=== PATIENT | male | born 1955 | race Two or more races ===

== ENCOUNTER 2020-08-01 13:05 | Emergency (ER) | payer MEDICAID, MEDICARE ==
[~2020-08-01] VITALS: Ht 165.1 cm; Wt 78.9 kg
[~2020-08-01 13:05] MED LIST: AMLO10TA13 PO; ASPI-394 PO; ATOR20TA50 PO; ENAL2.5T11 PO
[2020-08-01] MEDS ORDERED: cloNIDine HCL 0.1 MG TAB PO ONE (13:45)
[2020-08-01 14:53] VITALS: BP 158/87
[2020-08-01 15:10] LABS: Albumin 3.9 g/dL (3.4-5.0); Calcium 9.1 mg/dL (8.5-10.1); Potassium 3.5 mmol/L (3.5-5.1)
[2020-08-01 15:16] LABS: BUN/Creatinine Ratio 12.6; Bilirubin, Total 0.5 mg/dL (0.2-1.0); Total Protein 7.9 g/dL (6.4-8.2)
[2020-08-01 15:59] LABS: Basophils # (auto) 0 10 ^3/uL (0-0.2); Basophils % (auto) 0.6 % (0.0-2.0); Eosinophils # (auto) 0.2 10 ^3/uL (0-0.8); Eosinophils % (auto) 2.5 % (0.0-7.0); Hematocrit 48.6 % (41.0-53.0); Hemoglobin 16.2 g/dL (13.5-17.5); Lymphocytes # (auto) 1.3 10 ^3/uL (0.4-5.4); Mean Corpuscular Hgb Conc. 33.3 g/dL (32.0-36.0); Mean Corpuscular Volume 90.1 fL (80.0-100.0); Monocytes # (auto) 0.6 10 ^3/uL (0-1.3); Monocytes % (auto) 8.7 % (0.0-12.0); Neutrophils # (auto) 4.5 10 ^3/uL (1.6-8.6); Neutrophils % (auto) 68.2 % (37.0-80.0); Nucleated Red Blood Cells % 0.1 %; Platelet Count (auto) 262 10^3/uL (140-450); Red Cell Distribution Width 13.5 % (11.8-14.3); White Blood Cell 6.5 10^3/uL (4.4-10.8)
== END 2020-08-01 16:15 | disposition home or self-care (01) ==
LOC: ER 13:05
DX: I16.0 Hypertensive urgency (principal); I10 Essential (primary) hypertension; E11.9 Type 2 diabetes mellitus without complications; E78.5 Hyperlipidemia, unspecified; R51.9 Headache, unspecified; Z87.891 Personal history of nicotine dependence
CPT/HCPCS: 36415; 70450; 80053; 84443; 85025

== ENCOUNTER 2023-02-01 17:56 | Inpatient (IN) | payer MEDICARE, OTHER ==
[~2023-02-01] VITALS: Ht 165.1 cm; Wt 75.7 kg
[~2023-02-01 17:56] MED LIST changes: +AMLO-496 PO; -AMLO10TA13 PO
[2023-02-01 20:15] LABS: Basophils # (auto) 0 10 ^3/uL (0-0.2); Basophils % (auto) 0.4 % (0.0-2.0); Eosinophils # (auto) 0.1 10 ^3/uL (0-0.8); Eosinophils % (auto) 1.6 % (0.0-7.0); Hemoglobin 15.9 g/dL (13.5-17.5); Lymphocytes % (auto) 23.2 % (10.0-50.0); Mean Corpuscular Hemoglobin 29.5 pg (28.0-32.0); Mean Corpuscular Hgb Conc. 33.8 g/dL (32.0-36.0); Mean Corpuscular Volume 87.1 fL (80.0-100.0); Monocytes # (auto) 0.7 10 ^3/uL (0-1.3); Monocytes % (auto) 7.7 % (0.0-12.0); Neutrophils # (auto) 5.7 10 ^3/uL (1.6-8.6); Neutrophils % (auto) 67.1 % (37.0-80.0); Nucleated Red Blood Cells % 0.1 %; Red Cell Distribution Width 13.2 % (11.8-14.3); White Blood Cell 8.5 10^3/uL (4.4-10.8)
[2023-02-01 20:40] LABS: Albumin 4.1 g/dL (3.4-5.0); BUN/Creatinine Ratio 24.2 (10.0-20.0); Calcium 9.7 mg/dL (8.5-10.1); Potassium 4.4 mmol/L (3.5-5.1)
[2023-02-01 20:42] LABS: Bilirubin, Total 0.5 mg/dL (0.2-1.0); Total Protein 7.8 g/dL (6.4-8.2)
[2023-02-01 21:50] LABS: Urine Bacteria NONE SEEN /hpf (None Seen); Urine Blood Negative /uL (Negative); Urine Mucus FEW (None Seen); Urine Specific Gravity 1.033 (1.001-1.035); Urine WBC 3 /hpf (0 - 3)
[2023-02-02] MEDS ORDERED: TEMAZEPAM 15 MG CAP PO PRN (05:00)
[2023-02-02] MEDS ORDERED: FLEET ENEMA(ADULT) 135 ML PR ONE (05:00)
[2023-02-02] MEDS: HCTZ 25 MG TAB PO SCH (11:16)
[2023-02-02] MEDS: amLODIPine BESYLATE 5 MG TAB PO SCH (11:17)
[2023-02-02] MEDS: LISINOPRIL 20 MG TAB PO SCH (11:17)
[2023-02-02] MEDS: DOCUSATE SOD 100 MG CAP PO SCH ×2 (11:18→22:13)
[2023-02-02] MEDS: ENOXAPARIN SOD 40 MG/0.4 ML SYRINGE SC SCH (11:18)
[2023-02-02] MEDS: CARBIDOPA W LEVODOPA 25/100mg TABLET PO SCH ×2 (14:40→22:12)
[2023-02-02 17:00] VITALS: BP 128/67
[2023-02-02] MEDS ORDERED: traMADol HCL 50 MG TAB PO PRN (17:45)
[2023-02-02 22:00] VITALS: BP 123/67
[2023-02-02] MEDS: ATORVASTATIN 20 MG TAB PO SCH (22:12)
[2023-02-03] MEDS ORDERED: CARB1CAP3 PO (01:58)
[2023-02-03] MEDS ORDERED: HYDR12.56 PO (01:58)
[2023-02-03 05:00] VITALS: BP 112/63
[2023-02-03 06:54] LABS: Basophils # (auto) 0.1 10 ^3/uL (0-0.2); Basophils % (auto) 0.6 % (0.0-2.0); Eosinophils # (auto) 0.3 10 ^3/uL (0-0.8); Eosinophils % (auto) 3.1 % (0.0-7.0); Hematocrit 43.6 % (41.0-53.0); Hemoglobin 15.1 g/dL (13.5-17.5); Lymphocytes # (auto) 2.8 10 ^3/uL (0.4-5.4); Lymphocytes % (auto) 32.4 % (10.0-50.0); Mean Corpuscular Hemoglobin 30.4 pg (28.0-32.0); Mean Corpuscular Hgb Conc. 34.7 g/dL (32.0-36.0); Mean Corpuscular Volume 87.5 fL (80.0-100.0); Monocytes # (auto) 0.5 10 ^3/uL (0-1.3); Monocytes % (auto) 6.3 % (0.0-12.0); Neutrophils # (auto) 4.9 10 ^3/uL (1.6-8.6); Neutrophils % (auto) 57.6 % (37.0-80.0); Nucleated Red Blood Cells % 0.7 %; Red Blood Cells 4.99 10^6/uL (4.5-5.90); Red Cell Distribution Width 13.1 % (11.8-14.3); White Blood Cell 8.6 10^3/uL (4.4-10.8)
[2023-02-03] MEDS: CARBIDOPA W LEVODOPA 25/100mg TABLET PO SCH ×3 (07:12→22:40)
[2023-02-03] MEDS: ENOXAPARIN SOD 40 MG/0.4 ML SYRINGE SC SCH (08:59)
[2023-02-03 09:00] VITALS: BP 140/67
[2023-02-03] MEDS: LISINOPRIL 20 MG TAB PO SCH (09:00)
[2023-02-03] MEDS: HCTZ 25 MG TAB PO SCH (09:00)
[2023-02-03] MEDS: DOCUSATE SOD 100 MG CAP PO SCH ×2 (09:01→22:39)
[2023-02-03] MEDS: amLODIPine BESYLATE 5 MG TAB PO SCH (09:02)
[2023-02-03 09:11] LABS: Folate (Folic Acid) 12.33 ng/mL (5.38-24)
[2023-02-03 10:15] LABS: Calcium 8.8 mg/dL (8.5-10.1); Potassium 3.7 mmol/L (3.5-5.1)
[2023-02-03 12:47] VITALS: BP 132/70
[2023-02-03] MEDS ORDERED: POLYETHYLENE GLYCOL 17 GM PWDR PO ONE (13:45)
[2023-02-03 15:12] LABS: Cholesterol 122 mg/dL (< 200); HDL Cholesterol 34 mg/dL (40-59); LDL Cholesterol 77 mg/dL (< 100); Triglycerides 90 mg/dL (< 150)
[2023-02-03 16:57] VITALS: BP 120/65
[2023-02-03] MEDS: TAMSULOSIN HYDROCHLORIDE 0.4 MG CAP PO SCH (18:00)
[2023-02-03 22:00] VITALS: BP 147/77
[2023-02-03] MEDS: ATORVASTATIN 20 MG TAB PO SCH (22:39)
[2023-02-04 05:00] VITALS: BP 142/64
[2023-02-04] MEDS: CARBIDOPA W LEVODOPA 25/100mg TABLET PO SCH ×2 (06:27→15:04)
[2023-02-04 09:00] VITALS: BP 147/74
[2023-02-04] MEDS: ENOXAPARIN SOD 40 MG/0.4 ML SYRINGE SC SCH (09:35)
[2023-02-04] MEDS: DOCUSATE SOD 100 MG CAP PO SCH (09:35)
[2023-02-04] MEDS: HCTZ 25 MG TAB PO SCH (09:36)
[2023-02-04] MEDS: LISINOPRIL 20 MG TAB PO SCH (09:37)
[2023-02-04] MEDS: amLODIPine BESYLATE 5 MG TAB PO SCH (09:37)
[2023-02-04] MEDS ORDERED: POLYETHYLENE GLYCOL 17 GM PWDR PO SCH (10:00)
[2023-02-04 13:00] VITALS: BP 149/70
[2023-02-04 17:00] VITALS: BP 137/69
[2023-02-04 17:13] VITALS: BP 149/74
[2023-02-04] MEDS: TAMSULOSIN HYDROCHLORIDE 0.4 MG CAP PO SCH (18:00)
== END 2023-02-04 18:05 | DRG 726 ==
LOC: ER 17:56 → OVERFLOW 02-02 04:59 → CENTRAL 02-02 15:32
PROVIDERS: ADMIT Nurse Practitioner; ATTEND Internal Medicine
DX: N40.1 Benign prostatic hyperplasia with lower urinary tract symptoms (principal); R62.7 Adult failure to thrive; Z68.26 Body mass index [BMI] 26.0-26.9, adult; G20 Parkinson's disease; I10 Essential (primary) hypertension; R29.6 Repeated falls; R55 Syncope and collapse; E78.5 Hyperlipidemia, unspecified; E11.9 Type 2 diabetes mellitus without complications; Z20.822 Contact with and (suspected) exposure to COVID-19; R26.9 Unspecified abnormalities of gait and mobility; R35.1 Nocturia; R33.8 Other retention of urine; Z82.62 Family history of osteoporosis; Z87.891 Personal history of nicotine dependence; K59.00 Constipation, unspecified
CPT/HCPCS: 36415; 70450; 71045; 74176; 80048; 80053; 80061; 81001; 82306; 82607; 82746; 83036; 83690; 84154; 84443; 84484; 85025; 87426; 96372; 97110; 97116; 97163; 97530; G0378

== ENCOUNTER 2023-07-18 09:11 | Emergency (ER) | payer MEDICARE, OTHER ==
[~2023-07-18] VITALS: Ht 162.6 cm; Wt 75.2 kg
[~2023-07-18 09:11] MED LIST changes: -AMLO-496 PO; +AMLO1TAB23 PO; +CARB1CAP3 PO; +HYDR12.59 PO
[2023-07-18 10:27] VITALS: BP 150/61; PULSE 86; RESP 16; TEMP 97.9; O2SAT 98
[2023-07-18] MEDS ORDERED: NEOMYCIN-BACITRACIN-POLYM UNITDOSE PKG TOP OINT TOP ONE (11:30)
[2023-07-18] MEDS ORDERED: CEPH500C PO (12:19)
== END 2023-07-18 12:29 | disposition home or self-care (01) ==
LOC: ER 09:11
DX: S01.111A Laceration without foreign body of right eyelid and periocular area, initial encounter (principal); R51.9 Headache, unspecified; M54.2 Cervicalgia; I10 Essential (primary) hypertension; E11.9 Type 2 diabetes mellitus without complications; E78.5 Hyperlipidemia, unspecified; Z87.891 Personal history of nicotine dependence; W06.XXXA Fall from bed, initial encounter; Y93.89 Activity, other specified; Y92.89 Other specified places as the place of occurrence of the external cause; Y99.8 Other external cause status
CPT/HCPCS: 12011; 70450; 72125

== ENCOUNTER 2024-05-14 11:57 | Inpatient (IN) | payer MEDICARE, OTHER ==
[~2024-05-14] VITALS: Ht 167.6 cm; Wt 74.5 kg
[~2024-05-14 11:57] MED LIST changes: +CEPH500C PO; +ENAL1TAB43 PO; -ENAL2.5T11 PO
[2024-05-14 13:30] LABS: Urine Bacteria None Seen /hpf (None Seen)
[2024-05-14 13:59] LABS: Urine Blood Negative /uL (Negative); Urine Clarity Clear (Clear); Urine Color Yellow (Yellow); Urine Hyaline Cast FEW /lpf (0 - 2); Urine Mucus FEW (None Seen); Urine Protein, UAD Negative (Negative); Urine Specific Gravity 1.022 (1.001-1.035); Urine Urobilinogen Normal (Negative); Urine WBC 1 /hpf (0 - 3)
[2024-05-14 14:19] LABS: Basophils # (auto) 0 10 ^3/uL (0-0.2); Basophils % (auto) 0.5 % (0.0-2.0); Eosinophils # (auto) 0.1 10 ^3/uL (0-0.8); Eosinophils % (auto) 1.4 % (0.0-7.0); Hematocrit 39.4 % (41.0-53.0); Hemoglobin 13.4 g/dL (13.5-17.5); Lymphocytes % (auto) 30.6 % (10.0-50.0); Mean Corpuscular Hemoglobin 29.6 pg (28.0-32.0); Mean Corpuscular Hgb Conc. 34.1 g/dL (32.0-36.0); Mean Corpuscular Volume 86.7 fL (80.0-100.0); Monocytes # (auto) 0.4 10 ^3/uL (0-1.3); Monocytes % (auto) 6.9 % (0.0-12.0); Neutrophils # (auto) 3.9 10 ^3/uL (1.6-8.6); Neutrophils % (auto) 60.6 % (37.0-80.0); Red Blood Cells 4.54 10^6/uL (4.5-5.90); Red Cell Distribution Width 13.6 % (11.8-14.3); White Blood Cell 6.5 10^3/uL (4.4-10.8)
[2024-05-14 14:39] LABS: Alanine Aminotransferase 13 U/L (7-40); Albumin 4.3 g/dL (3.2-4.8); Alkaline Phosphatase 81 U/L (46-116); Anion Gap 7 (5-15); Aspartate Aminotransferase 9 U/L (13-40); BUN/Creatinine Ratio 13.2 (10.0-20.0); Bilirubin, Total 0.4 mg/dL (0.2-1.0); Blood Urea Nitrogen 10 mg/dL (9-23); Calcium 9.6 mg/dL (8.7-10.4); Carbon Dioxide 26 mmol/L (20-30); Chloride 107 mmol/L (98-107); Glucose 101 mg/dL (74-106); Potassium 3.9 mmol/L (3.5-5.1); Sodium 140 mmol/L (136-145); Total Protein 6.5 g/dL (5.7-8.2)
[2024-05-14] MEDS: predniSONE 20 MG TAB PO ONE (15:43)
[2024-05-14] MEDS ORDERED: DEXTROSE (50%) 50ML SYRG IV PRN (16:00)
[2024-05-14] MEDS ORDERED: DOCUSATE SOD 100 MG CAP PO PRN (16:00)
[2024-05-14] MEDS ORDERED: ACETAMINOPHEN 325 MG TAB PO PRN (16:00)
[2024-05-14] MEDS ORDERED: HYDROcodone-ACET 5/325MG TAB PO PRN (16:00)
[2024-05-14] MEDS ORDERED: ONDANSETRON HCL 4 MG/2 ML VIAL IV PRN (16:00)
[2024-05-14] MEDS ORDERED: hydrALAZINE HCL 20 MG/ML VL IV PRN (16:00)
[2024-05-14] MEDS ORDERED: NITROGLYCERIN 0.4 MG SL TAB SL PRN (16:30)
[2024-05-14] MEDS ORDERED: MORPHINE SULFATE INJ 2 MG/ml SYRG IV PRN (16:30)
[2024-05-14 16:35] VITALS: BP 183/80; TEMP 97.7
[2024-05-14 16:52] VITALS: PULSE 89; RESP 19; O2SAT 95
[2024-05-14] MEDS: ACCU-CHEK COMFORT CURVE STRIP VI SCH (17:34)
[2024-05-14] MEDS: InsuLIN REG 1unit/0.01ml Soln (100units/ml) SC SCH (17:34)
[2024-05-14] MEDS ORDERED: SODIUM CHLOR 0.9% PF (SALINE LOCK) 10ML VIAL/SYR IV SCH (22:00)
[2024-05-14] MEDS ORDERED: ATORVASTATIN 20 MG TAB PO SCH (22:00)
[2024-05-15] MEDS ORDERED: ASPirin 81 mg TAB PO SCH (10:00)
[2024-05-15] MEDS ORDERED: amLODIPine BESYLATE 5 MG TAB PO SCH (10:00)
== END 2024-05-14 18:34 | disposition left against medical advice (07) | DRG 552 ==
LOC: ER 11:57 → TELE 16:26
PROVIDERS: ADMIT Nurse Practitioner Family; ATTEND Nurse Practitioner Family
DX: M51.16 Intervertebral disc disorders with radiculopathy, lumbar region (principal); I10 Essential (primary) hypertension; G20.A1 Parkinson's disease without dyskinesia, without mention of fluctuations; E11.9 Type 2 diabetes mellitus without complications; E78.5 Hyperlipidemia, unspecified; Z79.82 Long term (current) use of aspirin; Z79.899 Other long term (current) drug therapy; Z79.2 Long term (current) use of antibiotics; Z87.891 Personal history of nicotine dependence
CPT/HCPCS: 36415; 72131; 80053; 81001; 82962; 83036; 84484; 85025; G0378